=== PATIENT | female | born 1980 | race Caucasian/White ===

== ENCOUNTER 2016-09-17 17:47 | Emergency (ER) | payer MEDICAID ==
[~2016-09-17] VITALS: Ht 160 cm; Wt 113.4 kg
[2016-09-17 17:50] VITALS: BP_SYST 153
--- NOTE | 2016-09-17 17:50 | NUR ---
BROUGHT BACK TO BED #4 AND TRIAGED. REPORT GIVEN TO MATT
--- NOTE | 2016-09-17 18:00 | NUR ---
Received Pt in bed 4. Pt c/o upper tooth pain 8/10 aching, throbbing, sharp shooting pain radiating from the front jaw to ear. Pt stated pain has been going for 3-4 days. Pt stated OTC pain medication was ineffective. Pt has difficulty chew due to increase pain.
--- NOTE | 2016-09-17 18:01 | NUR ---
TESS [place] AT BEDSIDE FOR EVALUATION
[2016-09-17] MEDS ORDERED: KETOROLAC TROMETHAMINE 60 MG/2 ML VIAL IM ONE (18:15)
--- NOTE | 2016-09-17 18:24 | NUR ---
Patient given written and verbal discharge instructions and verbalizes understanding. ER MD discussed with patient the results and treatment provided. Patient in stable condition. ID arm band removed. Rx of tylenol with codeine given. Patient educated on pain management and to follow up with PMD. Pain Scale 5/10. Opportunity for questions provided and answered.
[2016-09-17 18:28] VITALS: BP_SYST 135
== END 2016-09-17 18:26 | disposition home or self-care (01) ==
LOC: SED 17:47
DX: K08.89 Other specified disorders of teeth and supporting structures (principal); F17.210 Nicotine dependence, cigarettes, uncomplicated; F41.9 Anxiety disorder, unspecified; D64.9 Anemia, unspecified; Z88.5 Allergy status to narcotic agent
CPT/HCPCS: 81025; 99283

== ENCOUNTER 2023-08-31 16:30 | Emergency (ER) | payer MEDICAID ==
[~2023-08-31] VITALS: Ht 157.5 cm; Wt 111.1 kg
[2023-08-31 16:49] VITALS: BP_SYST 134; PULSE 100; RESP 17; TEMP 98.3; O2SAT 97
[2023-08-31] MEDS ORDERED: HYDR-3917 PO (17:14)
[2023-08-31 18:29] VITALS: BP_SYST 134; PULSE 100; RESP 17; TEMP 98.3; O2SAT 97
== END 2023-08-31 17:55 | disposition home or self-care (01) ==
LOC: SED 16:30
DX: G89.29 Other chronic pain (principal); M54.9 Dorsalgia, unspecified; M54.2 Cervicalgia; F41.9 Anxiety disorder, unspecified; F32.A Depression, unspecified; Z98.890 Other specified postprocedural states; Z88.5 Allergy status to narcotic agent; Z88.8 Allergy status to other drugs, medicaments and biological substances; Z88.1 Allergy status to other antibiotic agents
CPT/HCPCS: 99283